=== PATIENT | male | born 1995 | race Caucasian/White ===

== ENCOUNTER 2019-07-07 21:48 | Emergency (ER) | payer MEDICARE ==
[2019-07-07] MEDS ORDERED: Ibuprofen 600 MG Tab PO ONE (22:18)
--- NOTE | 2019-07-07 22:22 | EDM.PDOC ---
ED HPI GENERAL MEDICAL PROBLEM - General Chief Complaint: Upper Extremity Injury/Pain Stated Complaint: HURT WRIST Time Seen by Provider: 07/07/19 22:18 Source of Information: Reports: Patient, Old Records, RN History Limitations: Reports: No Limitations - History of Present Illness INITIAL COMMENTS - FREE TEXT/NARRATIVE: 23 yo male had a heavy object fall on his R wrist before arrival. No self tx. Reports decreased ROM due to pain. He believes his tetanus is UTD> Onset: Today Onset Date: 07/07/19 Duration: Minutes:, Constant Location: Reports: Upper Extremity, Right Quality: Reports: Ache Severity: Moderate Improves with: Reports: Rest Worsens with: Reports: Movement Context: Reports: Trauma Associated Symptoms: Reports: No Other Symptoms Treatments HEAD HOST/HOSTESS: Reports: Other (see below) (none) right wrist Pain Score (Numeric/FACES): 9 - Related Data Allergies Allergy/AdvReac Type Severity Reaction Status Date / Time No Known Allergies Allergy Verified 07/07/19 22:07 Home Meds: Home Meds NK [No Known Home Meds] 07/07/19 [History] Past Medical History Musculoskeletal History: Reports: Fracture Neurological History: Reports: Concussion Psychiatric History: Reports: ADHD Endocrine/Metabolic History: Reports: Obesity/BMI 30+ - Past Surgical History Musculoskeletal Surgical History: Reports: Other (See Below) Other Musculoskeletal Surgeries/Procedures:: finger surgery Social & Family History - Tobacco Use Smoking Status *Q: Current Every Day Smoker Years of Tobacco use: 3 Packs/Tins Daily: 0.7 - Caffeine Use Caffeine Use: Reports: Coffee, Tea - Alcohol Use Days Per Week of Alcohol Use: 2 Number of Drinks Per Day: 2 Total Drinks Per Week: 4 - Recreational Drug Use Recreational Drug Use: No Review of Systems - Review of Systems Review Of Systems: ROS reveals no pertinent complaints other than HPI. Constitutional: Reports: No Symptoms Musculoskeletal: Reports: Joint Swelling (? slight dorsal R wrist swelling. No deformity. ROM is decreased. ) Skin: Reports: Other (skin tear, small, to back of R hand. ) Neurological: Reports: No Symptoms ED EXAM, GENERAL - Physical Exam Exam: See Below Exam Limited By: No Limitations General Appearance: Alert, WD/WN, No Apparent Distress Extremities: Pedal Edema (? slight swelling of back of R wrist. ROM is decreased due to pain. No deformity.). No: Non-Tender, No Pedal Edema Neurological: Alert, Oriented, CN II-XII Intact, Normal Cognition, No Motor/ Sensory Deficits Psychiatric: Normal Affect, Normal Mood Skin Exam: Warm, Dry, Normal Color, No Rash, Other (small, partial thickness skin tear back of R hand. ) Course - Vital Signs Last Recorded V/S: Last Vital Signs Temp 35.6 C 07/07/19 22:12 Pulse 65 07/07/19 22:12 Resp 16 07/07/19 22:12 BP 124/66 07/07/19 22:12 Pulse Ox 97 07/07/19 22:12 - Orders/Labs/Meds Orders: Active Orders 24 hr Category Date Time Status Wrist Comp Min 3V Rt [CR] Stat Exams 07/07/19 22:16 Ordered Meds: Medications Discontinued Medications Generic Name Dose Route Start Last Admin Trade Name Denise PRN Reason Stop Dose Admin Ibuprofen 600 mg 07/07/19 22:18 07/07/19 22:22 Motrin PO 07/07/19 22:19 600 mg ONETIME ONE Administration - Radiology Interpretation Free Text/Narrative:: R wrist X-ray-neg Departure - Departure Time of Disposition: 22:40 Disposition: Home, Self-Care 01 Condition: Good Clinical Impression: Contusion of wrist, right Qualifiers: Encounter type: initial encounter Qualified Code(s): S60.211A - Contusion of right wrist, initial encounter - Discharge Information *PRESCRIPTION DRUG MONITORING PROGRAM REVIEWED*: No *COPY OF PRESCRIPTION DRUG MONITORING REPORT IN PATIENT BERNA: No Instructions: Contusion, [id number] Referrals: PCP,None [Primary Care Provider] - Forms: ED Department Discharge Additional Instructions: Ibuprofen and/or acetaminophen as needed for pain relief. Wear the splint as needed for support/protection. Recheck with your provider in a week if not better. - My Orders Last 24 Hours: My Active Orders 07/07/19 22:16 Wrist Comp Min 3V Rt [CR] Stat - Assessment/Plan Last 24 Hours: My Active Orders 07/07/19 22:16 Wrist Comp Min 3V Rt [CR] Stat
--- NOTE | 2019-07-07 22:56 | CRLCR ---
Indication: Object fell onto wrist Technique: Three views right wrist Comparison: None Findings: Bones: Alignment is normal. No fractures or bone lesions. Joint spaces: Unremarkable. Soft tissues: Unremarkable. Impression: Negative. Dictated by Radha Mckinney MD @ Jul 07 2019 10:54PM Signed by Dr. Radha Mckinney @ Jul 07 2019 10:54PM
== END 2019-07-07 22:44 | disposition home or self-care (01) ==
LOC: JP.ED 21:48
DX: S60.211A Contusion of right wrist, initial encounter (principal); E66.9 Obesity, unspecified; F17.210 Nicotine dependence, cigarettes, uncomplicated; Z68.32 Body mass index [BMI] 32.0-32.9, adult; W20.8XXA Other cause of strike by thrown, projected or falling object, initial encounter
CPT/HCPCS: 73110; 99283; A9270

== ENCOUNTER 2023-06-26 14:35 | Emergency (ER) | payer MEDICARE | END 2023-06-26 15:50 | disposition home or self-care (01) | LOC: JP.ED 14:35 | DX: K02.9 Dental caries, unspecified (principal); F17.210 Nicotine dependence, cigarettes, uncomplicated; E66.9 Obesity, unspecified; Z68.27 Body mass index [BMI] 27.0-27.9, adult | CPT/HCPCS: 99282 ==